=== PATIENT | female | born 1970 | race Caucasian/White ===

== ENCOUNTER 2017-06-20 10:33 | Emergency (ER) | payer MEDICARE, OTHER ==
[~2017-06-20] VITALS: Ht 172.7 cm; Wt 139.7 kg
--- NOTE | ~2017-06-20 | CT4 ---
[facility] A Service of [facility] RADIOLOGY TEXT RESULTS PATIENT: LEVI HOLDEN LOCATION: [facility] : 70 UNIT #: [id number] AGE: [address]: Estuardo Jacobo MD SEX: F ORDER DR: [id number] [facility] [address]. [place], [place] [address] [id number] MR#: [id number] #: [id number] NAME: LEVI HOLDEN : 1970 SEX: F STUDY DATE/TIME: 06/20/2017 12:56 UNIT: MATT ROOM: STUDY DESCRIPTION: CT Abd and Pelv Wo Cont Attending Physician: Estuardo Jacobo M.D. Ordering Physician: Estuardo Jacobo M.D. Primary Care Physician: Hafsa Rowe M.D. MEDICAL IMAGING REPORT This report is preliminary unless electronic signature is present EXAM CT abdomen and pelvis without contrast. INDICATIONS Mid abdominal pain beginning this morning. PROCEDURE Unenhanced CT of the abdomen and pelvis. COMPARISON 10/25/[address] exam was performed with one or more of the following radiation dose reduction techniques: automatic exposure control, adjustment of mA and/or kV according to patient size, and iterative reconstruction. FINDINGS ABDOMEN WITHOUT CONTRAST: Included lung bases are clear. Liver enlarged measuring 25 cm. The spleen measures 18.4 cm. The adrenal glands, pancreas unremarkable. A few small stones in the gallbladder but no evidence for active inflammation. The kidneys, adrenal glands are unremarkable. Bowel loops are nondilated. The appendix is normal. PELVIS WITHOUT CONTRAST: No pelvic mass or fluid. Subcutaneous edema in the lower abdomen. Lucency in the left hemisacrum is unchanged. No aggressive appearing bone lesion. IMPRESSION 1. Hepatosplenomegaly. 2. Minimal uncomplicated cholelithiasis. 3. No definite acute findings in the abdomen or pelvis. [facility] A Service of [facility] RADIOLOGY TEXT RESULTS PATIENT: LEVI HOLDEN LOCATION: [facility] : 70 UNIT #: [id number] AGE: [address]: Estuardo Jacobo MD SEX: F ORDER DR: Dictated by... Remigio Rosario M.D. THIS IS AN ELECTRONICALLY VERIFIED REPORT Remigio Rosario M.D. at 06/24/2017 8:20 AM JONH/brain TD: 06/20/2017 15:31 JOB #: [id number] MEDICAL IMAGING REPORT Page 1 of 1 COPY
[~2017-06-20 10:33] MED LIST: ALBUTEROL1.25 MG/3 IH; ALBUTEROL17 GM; ALBUTEROL17 GM INH; ALBUTEROL2.5 MG/0.5 IH; ALPRAZOLAM0.5 MG PO; ARANESP; ATARAX PO; AUGMENTIN PO; BAYER CHEWABLE81 MG PO; BENADRYL; BENAZEPRIL PO; BENICAR HCT 40-1 TA1 PO; BENICAR PO; BUMEX1 MG PO; BUMEX2 MG PO; CALCIUM ACETAT667 MG PO; CARVEDILOL25 MG PO; CATAPRES0.1 MG PO; CATAPRES0.3 MG PO; CLEOCIN PO; CLONAZEPAM0.25 MG/TA PO; CLONIDINE HCL0.3 MG PO; CORDARONE200 M1 PO; CYCLOBENZAPRINE5 MG PO; DARVOCET-N 1001 TAB PO; DIFLUCAN PO; DYAZIDE 37.5/251 CAP; FEROSUL325 ( 651 PO; FLEXERIL PO; FLEXERIL10 M1 PO; FLUOXETINE HCL20 M1 PO; FUROSEMIDE40 MG PO; GABAPENTIN300 M2 PO; GABAPENTIN600 MG PO; HUMALOG100 U/ML; HUMALOG100 U/ML SUBQ; HUMULIN R100 U/ML; HUMULIN R100 U/ML SUBQ; HUMULIN R500 U/ML SUBQ; HYDRALAZINE HC100 MG PO; HYDRALAZINE HCL25 MG PO; HYDRALAZINE HCL50 MG PO; HYDROCODON-ACE1 EAC1 PO; HYDROCODON-ACE1 EAC7 PO; IBUPROFEN PO; IBUPROFEN800 MG PO; ISOSORBIDE DINI40 M1 PO; K-DUR20 ME1 DOB; K-DUR20 ME1 PO; KCL PO; KEFLEX PO; LANTUS100 U/ML; LANTUS100 U/ML SUBQ; LASIX20 MG PO; LASIX80 MG PO; LEVEMIR FL100 UNIT/1; LEVEMIR FL100 UNIT/1 SQ; LEVEMIR100 UNITS/ SUBQ; LEVOTHROID50 MCG PO; LEVOTHYROXINE100 MC1 PO; LIPITOR20 MG PO; LISINOPRIL20 MG PO; LOPRESSOR PO; LOPRESSOR100 MG PO; LORTAB 5/500 TA1 TA2 PO; LORTAB 7.51 TAB PO; LOTREL 10/20 MG1 CAP; LOVENOX40 MG/0.4 INJ; MEDROL PO; METOLAZONE5 MG PO; METOPROLOL TAR25 MG DOB; MINOXIDIL PO; NEURONTIN PO; NEURONTIN300 MG PO; NITROGLYGERIN0.4 MG SL; NORVASC10 MG PO; NOVOLIN R100 UNITS/; NOVOLOG100 U/ML; NOVOLOG100 U/ML SUBQ; OMEPRAZOLE20 M2 PO; OXYGEN; PACERONE PO; PAIN RELIEF650 MG PO; PERCOCET5/325 PO; PHENERGAN PO; PHENERGAN25 M1 PO; PHENERGAN25 MG PO; PRILOSEC PO; PRILOSEC20 MG PO; PROVENTIL0.83 MG/ML IH; PYRIDIUM PO; RANEXA500 MG PO; SENNA LAXATIVE8.6 M1 PO; SERTRALINE HCL50 M1 PO; SPIRONOLACTONE50 MG PO; SULAR PO; SYMBICORT INH; SYMBICORT80 INH; SYNTHROID PO; SYNTHROID0.05 MG DOB; TESSALON PERLE100 M1 PO; TRICOR PO; VICODIN 5/500 T1 TAB PO; ZANTAC; ZANTAC PO; ZAROXOLYN5 MG PO; ZOFRAN PO; ZYLOPRIM100 MG DOB
[2017-06-20 11:55] LABS: BASOPHIL% 0.6 % (0-2.5); EOSINOPHIL# 0.2 X10e3 (0-0.7); EOSINOPHIL% 3.1 % (0.0-7.0); HEMATOCRIT 29.8 % (35.0-45.0); HEMOGLOBIN 9.5 gm/dL (12.0-16.0); LYMPHOCYTE# 0.7 X10e3 (1.0-3.5); LYMPHOCYTE% 11.6 % (17.0-45.0); MEAN CELL VOLUME 95.4 FL (83-96); MEAN CORPUSCULAR HEMOGLOBIN 30.5 PG (28-34); MEAN PLATELET VOLUME 7.4 FL (6.5-11.5); MONOCYTE# 0.5 X10e3 (0-1.0); MONOCYTE% 8.4 % (3.0-12.0); NEUTROPHIL# 4.8 X10e3 (1.5-7.1); NEUTROPHIL% 76.3 % (40-75); PLATELET COUNT 80 X10e3 (140-420); RED BLOOD COUNT 3.13 X10e (3.90-5.30); RED CELL DISTRIBUTION WIDTH 17.3 % (11.0-15.5); WHITE BLOOD COUNT 6.3 X10e3 (4.0-10.5)
[2017-06-20 12:16] LABS: DIFF IND YES
[2017-06-20 12:18] LABS: ANISOCYTOSIS SL; PLATELET ESTIMATE DECREASED (NORMAL)
[2017-06-20 12:25] LABS: ALBUMIN SERUM 3.5 g/dL (3.5-5.0); BILIRUBIN, DIRECT 0.1 mg/dL (0.0-0.2); BILIRUBIN,INDIRECT 0.2 mg/dL (0.0-0.9); BILIRUBIN,TOTAL 0.3 mg/dL (0.2-2.0); BUN/CREATININE RATIO 9.41; CALCIUM SERUM 8.2 mg/dL (8.4-10.2); CREATININE SERUM 5.1 mg/dL (0.6-1.4); GLOM FILT RATE Estimated 9.4 mL/min (>60); POTASSIUM 4.4 mmol/L (3.5-5.1); PROTEIN TOTAL SERUM 6.9 g/dL (6.0-8.3)
== END 2017-06-20 15:35 | disposition home or self-care (01) ==
LOC: CED 10:33
PROVIDERS: Emergency Medicine
DX: R10.9 Unspecified abdominal pain (principal); I13.2 Hypertensive heart and chronic kidney disease with heart failure and with stage 5 chronic kidney disease, or end stage renal disease; E11.22 Type 2 diabetes mellitus with diabetic chronic kidney disease; E11.65 Type 2 diabetes mellitus with hyperglycemia; N18.6 End stage renal disease; I50.9 Heart failure, unspecified; K21.9 Gastro-esophageal reflux disease without esophagitis; J44.9 Chronic obstructive pulmonary disease, unspecified; I25.2 Old myocardial infarction; G47.30 Sleep apnea, unspecified
CPT/HCPCS: 36415; 74176; 80048; 80076; 82150; 82947; 83690; 85025; 96374; 96375; 99284; J2270; J2405; J2765

== ENCOUNTER 2017-06-24 17:47 | Inpatient (IN) | payer MEDICARE, OTHER ==
[~2017-06-24] VITALS: Ht 172.7 cm; Wt 161.0 kg
--- NOTE | ~2017-06-24 | DS ---
Unit #: [id number] #: [id number] Patient: LEVI HOLDEN [id number] [address] [address] [id number] I MR#: [id number] NAME: LEVI HOLDEN ROOM: 341 Age: 46 Sex: F Admission Date: 06/24/2017 : 1970 Discharge Date: 07/01/2017 Attending Physician: Evy Dutta M.D. Primary Care Physician: Hafsa Rowe M.D. DISCHARGE SUMMARY FINAL DIAGNOSES 1. Abdominal pain. 2. Cholelithiasis but HIDA scan is negative. 3. Severe anemia which is chronic. 4. Status post esophagogastroduodenoscopy which shows gastritis and esophagitis. 5. Status post colonoscope which shows poor prep but normal whatever can be seen. 6. End stage renal disease, on hemodialysis. 7. Obstructive sleep apnea. 8. Morbid obesity. 9. Hypertension. 10. Diabetes mellitus. 11. Chronic pain. 12. Hypothyroidism. 13. Coronary artery disease. DISCHARGE MEDICATIONS 1. Coreg 25 mg b.i.d. 2. Amlodipine 10 mg daily. 3. Bumex 2 mg twice a day. 4. Clonidine 0.3 mg twice a day. 5. Hydralazine 100 mg t.i.d. 6. Levemir 35 units subcu b.i.d. 7. Zyloprim 100 mg twice a day. 8. Aspirin 81 mg daily. 9. Hydrocodone on a p.r.n. basis. 10. Plavix 75 mg daily. 11. Protonix 40 mg daily. 12. Calcium acetate 667 t.i.d. 13. Baclofen 20 mg at bedtime p.r.n. 14. Levothyroxine 100 mcg daily. 15. Isosorbide 30 mg daily. 16. Mini neb treatment with albuterol and ipratropium q.i.d. p.r.n. 17. Amiodarone 100 mg daily. 18. Lactulose 15 mL daily p.r.n. 19. Gabapentin 400 mg t.i.d. 20. Fluoxetine 20 mg twice a day. 21. Atorvastatin 80 mg daily. 22. Clonazepam 0.25 mg b.i.d. p.r.n. for anxiety. LAB WORKUP ON DISCHARGE Glucose is 120. Unit #: [id number] #: [id number] Patient: LEVI HOLDEN BMP shows sodium 129, potassium 4.1, chloride 92, BUN 52, creatinine 5.0, calcium 7.9. CBC shows WBC 5.5, hemoglobin 9.1, hematocrit 27.7, and platelet count of 74. Hemoccult in stool was negative. Urine culture - colony count 40,000 mixed growth. Please note - patient received IV Rocephin during hospitalization for possible UTI. SIGNIFICANT IMAGING STUDIES DONE DURING HOSPITALIZATION 1. CT scan of the abdomen and pelvis which shows hepatosplenomegaly. Minimal uncomplicated cholelithiasis. No definite acute finding in the abdomen or pelvis. 2. Chest x-ray shows persistent cardiomegaly, possible atelectasis in the right lung base. 3. Ultrasound of the abdomen shows cholelithiasis. 4. HIDA scan - normal study with ejection fraction of 62%. HOSPITAL COURSE Ms. Saenz is a 46-year-old, morbidly obese female, who was admitted to the hospital on June 25, 2017, with shortness of breath and abdominal pain and nausea and vomiting. Patient was admitted to telemetry unit. LSA was consulted. HIDA scan was ordered. IV antibiotic was started for UTI and Dr. Hogan was consulted for end stage renal disease. Patient also had severe anemia, most likely multifactorial. Patient continued to complain of abdominal pain. HIDA scan was negative. The patient had EGD and colonoscope done eventually and the results are as above. The patient is being discharged home in stable condition. Plan of care was discussed with patient at length. EXAMINATION AT DISCHARGE Blood pressure is 153/88, respiratory rate 18, pulse is 62, temperature 97.4, oxygen saturation is 92%. HEAD is normocephalic. CHEST has fair air entry, decreased at the bases. CVS is regular rhythm. DISCHARGE INSTRUCTION 1. The patient is being discharged home in stable condition. 2. Follow up with primary care provider in one week. 3. Protonix 40 mg daily, prescription has been written. 4. Continue hemodialysis per renal. Dictated by... Evy Dutta M.D. Kimberly TD: 07/02/2017 10:45 JOB #: [id number] Unit #: [id number] #: [id number] Patient: LEVI HOLDEN DISCHARGE SUMMARY Page 1 of 1 X Evy Dutta MD X DISCHARGE SUMMARY
--- NOTE | ~2017-06-24 | EKG ---
PATIENT: LEVI HOLDEN UNIT #: [id number] Ventricular Rate: 61 BPM Atrial Rate: 61 BPM P-R Interval: 218 ms QRS Duration: 108 ms Q-T Interval: 502 ms QTC Calculation(Bezet): 505 ms P [place]: 34 degrees Calculated R [place]: 17 degrees Calculated T [place]: 48 degrees Diagnosis Line: Sinus rhythm with sinus arrhythmia with 1st degree Diagnosis Line: A-V block Diagnosis Line: Low voltage QRS Diagnosis Line: Prolonged QT Diagnosis Line: Abnormal ECG Diagnosis Line: When compared with ECG of 26-JUN-2017 19:59, Diagnosis Line: (unconfirmed) Diagnosis Line: Premature atrial complexes are no longer Present Diagnosis Line: Confirmed by GELY JOSHI MD ([id number]) on 06/27/2017 Diagnosis Line: 7:24:20 PM INTERPRETING MD: ADI ROMERO
--- NOTE | ~2017-06-24 | CR72 ---
[facility] A Service of [facility] RADIOLOGY TEXT RESULTS PATIENT: LEVI HOLDEN LOCATION: [facility] 341- : 70 UNIT #: [id number] AGE: [address]: Evy Dutta MD SEX: F ORDER DR: [id number] [facility] [address]. [place], [place] [address] [id number] I MR#: [id number] Acc #: [id number] NAME: LEVI HOLDEN : 1970 SEX: F STUDY DATE/TIME: 06/24/2017 18:27 UNIT: A U ROOM: 341 STUDY DESCRIPTION: CR Chest Single View Portable Attending Physician: Evy Dutta M.D. Ordering Physician: Arias Roa D.O. Primary Care Physician: Hafsa Rowe M.D. MEDICAL IMAGING REPORT This report is preliminary unless electronic signature is present EXAM Frontal chest 06/24/2017. INDICATIONS 46-year-old female with shortness of air today. TECHNIQUE Frontal chest. COMPARISON Compared with 02/21/2017. FINDINGS Large-bore central line from left sided approach is unchanged. The heart is enlarged but stable. Lung volumes are low. There is bronchovascular crowding. There is worsening atelectasis/scar or less likely developing infiltrate in the peripheral midlung zone on the left. No pneumothorax. IMPRESSION 1. Persistent cardiomegaly. Probable atelectasis in the right lung base/scarring in the right lung base. Additional worsening atelectasis or scarring or less likely developing infiltrate in the peripheral midlung zone on the left. Dictated by... Jeffrey Gallo M.D. THIS IS AN ELECTRONICALLY VERIFIED REPORT Jeffrey Gallo M.D. at 06/25/2017 2:19 PM Noah TD: 06/25/2017 09:43 JOB #: [id number] [facility] A Service of [facility] RADIOLOGY TEXT RESULTS PATIENT: LEVI HOLDEN LOCATION: [facility] 341-01 : 70 UNIT #: [id number] AGE: [address]: Evy Dutta MD SEX: F ORDER DR: MEDICAL IMAGING REPORT Page 1 of 1 COPY
--- NOTE | ~2017-06-24 | HP ---
Unit #: [id number] #: [id number] Patient: LEVI HOLDEN [id number] [address] [address] [id number] I MR#: [id number] NAME: LEVI HOLDEN ROOM: 341 Age: 46 Sex: F Admission Date: 06/24/2017 : 1970 Attending Physician: Evy Dutta M.D. Primary Care Physician: Hafsa Rowe M.D. HISTORY AND PHYSICAL CHIEF COMPLAINT Abdominal pain. HISTORY OF PRESENT ILLNESS The patient is a 46-year-old morbidly obese female with multiple medical problems, who presented to the hospital with abdominal discomfort and nausea. The patient does not complain of vomiting. Her p.o. intake has decreased. The patient also complains of some shortness of breath. The patient was admitted to the hospital for possible colitis. The patient did not complain of constipation or diarrhea. PAST MEDICAL HISTORY 1. Chronic obstructive pulmonary disease. 2. Morbid obesity. 3. Obstructive sleep apnea. 4. Seizure disorder. 5. Hepatitis B. 6. Hypertension. 7. Diabetes mellitus. 8. (1) disease. 9. Endstage renal disease on hemodialysis. 10. Gastroesophageal reflux disease. PAST SURGICAL HISTORY 1. History of hernia repair. 2. History of tonsillectomy. 3. History of right ankle surgery. 4. Incision and drainage of the abscess. 5. Shunt placement. SOCIAL HISTORY The patient is a former smoker. No alcohol abuse or drug abuse. FAMILY HISTORY Noncontributory. ALLERGIES The patient is allergic to multiple medications, including sulfa drugs, Cipro, vancomycin, Levaquin, heparin and codeine. HOME MEDICATIONS 1. Zyloprim 100 mg b.i.d. 2. Amlodipine 10 mg daily. 3. Aspirin 81 mg daily. Unit #: [id number] #: [id number] Patient: LEVI HOLDEN 4. Atorvastatin 80 mg daily. 5. Bumex 2 mg b.i.d. 6. Coreg 25 mg b.i.d. 7. Clonazepam 0.25 mg b.i.d. 8. Clonidine 0.3 mg b.i.d. 9. Percocet 5 mg daily. 10. Cyclobenzaprine 10 mg b.i.d. 11. Gabapentin 400 mg t.i.d. 12. Humulin R 0.5 ml subcutaneous b.i.d. 13. Hydralazine 100 mg t.i.d. 14. Imdur ER 30 mg daily. 15. Levemir 15 units subcutaneous b.i.d. 16. Levothyroxine 100 mcg daily. 17. Hydrocodone 10/325 one tablet q.6 h. p.r.n. 18. Albuterol sulfate 1 inhaler q.i.d. p.r.n. 19. Amiodarone 100 mg daily. 20. Baclofen 20 mg at bedtime. 21. Calcium acetate 667 t.i.d. 22. Fluoxetine 20 mg b.i.d. 23. Lasix 80 mg b.i.d. 24. Ipratropium p.r.n. 25. Metoprolol 100 mg b.i.d. 26. Lactulose 15 ml daily. REVIEW OF SYSTEMS No history of fever, chills or rigors. No history of chest pain. No history of neck pain. She does complain of some shortness of breath. History of severe obstructive sleep apnea and uses CPAP. The rest is as per history of present illness. PHYSICAL EXAMINATION GENERAL: Morbidly obese female in no respiratory distress. VITALS: In the emergency room the patient's blood pressure was 134/68, respiratory rate 18, pulse 60, temperature 97.5, oxygen saturation 100%. HEENT: Head is normocephalic. Eye movements are normal and reacting to light. NECK: Supple. No adenopathy. Trachea midline. HEART: S1 and S2 positive. Decreased at the bases. Distant sounds. ABDOMEN: Obese. Bowel sounds are positive. Mild tenderness is present. More in the right upper quadrant. EXTREMITIES: Left (2) is present. Lower extremities some swelling is present. NEUROLOGIC: Awake, alert and oriented times three. No focal neurological deficits. DIAGNOSTIC STUDIES IMAGING: Chest x-ray single view was done, which shows persistent cardiomegaly and right lower lobe atelectasis. LABORATORY: Done in the emergency room, shows white blood cell count 7.4, hemoglobin 8.7, hematocrit 27.2, platelets 63. Troponin 0.06. BMP shows sodium 132, potassium 5.6, BUN 57, creatinine 6.1, CK total 213. Lactic acid is 0.9. Urinalysis shows 3+ leukocyte esterase, 1+ urine bacteria. ASSESSMENT The patient is being admitted to telemetry unit with the diagnoses of 1. Abdominal pain. 2. Cholelithiasis. Rule out cholecystitis. Unit #: [id number] #: [id number] Patient: LEVI HOLDEN 3. Nausea. 4. Urinary tract infection. 5. Endstage renal disease on hemodialysis. 6. Anemia. 7. Chronic obstructive pulmonary disease. 8. Diabetes mellitus type 2. 9. Obstructive sleep apnea. 10. Hypertension. 11. Morbid obesity. PLAN Admit to the telemetry unit. HIDA scan has been ordered. Labs will be repeated tomorrow morning. LSA has been consulted. Dr. Hogan has been consulted. Home medications have been reviewed and adjusted. DVT prophylaxis has been started. Plan of care has been discussed with the patient at length. Please refer to progress note for further orders. Dictated by Darin Ott TD: 07/01/2017 12:23 JOB #: [id number] HISTORY AND PHYSICAL Page 1 of 1 X Evy Dutta MD X HISTORY AND PHYSICAL
--- NOTE | ~2017-06-24 | EKG ---
PATIENT: LEVI HOLDEN UNIT #: [id number] Ventricular Rate: 72 BPM Atrial Rate: 100 BPM QRS Duration: 98 ms Q-T Interval: 480 ms QTC Calculation(Bezet): 525 ms P [place]: 27 degrees Calculated R [place]: 63 degrees Calculated T [place]: 32 degrees Diagnosis Line: Sinus rhythm with 2nd degree A-V block (Mobitz I) Diagnosis Line: Low voltage QRS Diagnosis Line: Prolonged QT Diagnosis Line: Abnormal ECG Diagnosis Line: When compared with ECG of 28-OCT-2016 19:04, Diagnosis Line: Sinus rhythm is now with 2nd degree A-V block Diagnosis Line: (Mobitz I) Diagnosis Line: T wave inversion no longer evident in Lateral Diagnosis Line: leads Diagnosis Line: Confirmed by GELY JOSHI MD ([id number]) on 06/26/2017 Diagnosis Line: 12:01:13 AM INTERPRETING MD: ADI ROMERO
--- NOTE | ~2017-06-24 | CO ---
Unit #: [id number] #: [id number] Patient: LEVI HOLDEN [id number] [facility] [address] [place], [place] [address] [id number] I MR#: [id number] NAME: LEVI HOLDEN ROOM: 341 Age: 46 Sex: F Admission Date: 06/24/2017 : 1970 Attending Physician: Evy Dutta M.D. Primary Care Physician: Hafsa Rowe M.D. Consultation Date: 06/26/2017 CONSULTATION REPORT REVISED REPORT REASON FOR CONSULTATION 1. Right upper quadrant pain. 2. Cholelithiasis. 3. Anal pain. Thank you very much for asking us to see Ms. Lara. HISTORY OF PRESENT ILLNESS She is a 46-year-old white female, who has a history of morbid obesity, multiple medical problems including COPD, hypothyroidism, and asthma as well as renal insufficiency, requiring hemodialysis. The patient presented with a 2 to 3 day history of nausea and vomiting and right upper quadrant pain. She was evaluated in the emergency room at [facility] with CT scan of the abdomen and pelvis. This revealed the patient had cholelithiasis and hepatosplenomegaly, but no other acute findings. An ultrasound of the gallbladder and abdomen confirmed cholelithiasis, but no evidence of acute cholecystitis. The patient had deep pressure pain in the right upper quadrant. It radiates to the back. It was associated with nausea and vomiting. The patient states she has recent reflux and heartburn. The patient also states she has had intermittent bright red blood per rectum on the paper in stool and some intermittent anal pain. She does not have a lot of pain when the bowel movements through the anal canal. She presents at this time for evaluation and treatment. ALLERGIES Sulfa, codeine, Cipro, vancomycin, levofloxacin. MEDICATIONS Please see med rec sheet. PAST SURGICAL HISTORY Umbilical hernia repair. She is unsure if mesh was placed, tonsillectomy, right ankle hardware placed. PAST MEDICAL HISTORY Coronary artery disease; congestive heart failure; hypertension; pulmonary problems; sleep apnea; asthma; hypothyroidism; diabetes; GERD; renal insufficiency, requiring hemodialysis. SOCIAL HISTORY No tobacco or alcohol use. Unit #: [id number] #: [id number] Patient: LEVI HOLDEN REVIEW OF SYSTEMS Negative except for above. FAMILY HISTORY Noncontributory. PHYSICAL EXAMINATION GENERAL: Well-developed, morbidly obese white female, in no apparent distress. Awake, alert, and oriented x3. VITAL SIGNS: Temperature is 97.5, pulse 64, respirations 20, blood pressure is 127/70. NECK: Supple. No thyromegaly or adenopathy. BACK: No CVA or spinous tenderness. ABDOMEN: Flat, soft. Tender in the right upper quadrant, but no rebound, peritoneal signs, or masses. EXTREMITIES: No calf tenderness. No erythema. ANAL: Examination of the patient's anal area reveals no evidence of fistula or abscess. On digital examination, there was no severe pain in the anal canal and no masses palpable. Good sphincter tone was present. DIAGNOSTIC STUDIES LABORATORY RESULTS: Reveal the patient to have a CMP that shows a glucose of 184, BUN 40, creatinine 4.9, and normal liver function studies. White count is 5.5 with a hemoglobin of 7.7, MCV of 95.7, and platelet count of 52,000. Urinalysis shows 3+ leukocyte esterase, negative nitrites. IMPRESSION A 46-year-old white female with morbid obesity with right upper quadrant pain, nausea, vomiting, and gallstones. We agreed with a HIDA scan today to determine if she has acute cholecystitis. If the gallbladder is non-visualized, she would need laparoscopic cholecystectomy. If the gallbladder is visualized, we feel it would be best for upper and lower endoscopy performed first to rule out any source of her anemia as well as the source of her intermittent rectal bleeding prior to laparoscopic cholecystectomy. If no significant pathology is found and then she is cleared medically, then she would possibly proceed with laparoscopic cholecystectomy. All this has been fully explained the patient in detail. She understands completely and requests we proceed with the current treatment plan. Dictated by... Darin Rizzo/shelby TD: 06/26/2017 11:57 JOB #: [id number] CC: Carmine Hogan M.D. [facility] Hafsa Rwoe M.D. Unit #: [id number] #: [id number] Patient: LEVI HOLDEN CONSULTATION REPORT Page 1 of 1 X Alfonzo Thurman MD REPORT
--- NOTE | ~2017-06-24 | NM21 ---
[facility] A Service of [facility] RADIOLOGY TEXT RESULTS PATIENT: LEVI HOLDEN LOCATION: [facility] : 70 UNIT #: [id number] AGE: [address]: Evy Dutta MD SEX: F ORDER DR: [id number] [id number] [place], [place] [address] [id number] I MR#: [id number] #: [id number] NAME: LEVI HOLDEN : 1970 SEX: F STUDY DATE/TIME: 06/26/2017 11:05 UNIT: [address] ROOM: 341 STUDY DESCRIPTION: NM Hepatobiliary W GB Attending Physician: Evy Dutta M.D. Ordering Physician: Evy Dutta M.D. Primary Care Physician: Hafsa Rowe M.D. MEDICAL IMAGING REPORT This report is preliminary unless electronic signature is present EXAM Hepatobiliary study with gallbladder stimulation HISTORY Right sided abdominal pain for 6 months which is getting worse. COMPARISON Ultrasound from 06/25/2017. FINDINGS Patient was given 5.29 mCi of Tc 99m Choletec. There is a normal distribution at the liver. The gallbladder is visualized promptly. At 60 minutes patient was given 3.4 mcg of Kinevac and 30 minute ejection fraction was calculated at 62%. Small bowel was visualized after administration of kinevac. IMPRESSION Normal study with an ejection fraction of 62%. Dictated by... Gino Montes M.D. THIS IS AN ELECTRONICALLY VERIFIED REPORT Gino Montes M.D. at 06/28/2017 6:07 AM CHARLES/dax TD: 06/26/2017 20:04 JOB #: [id number] [facility] A Service [facility] RADIOLOGY TEXT RESULTS PATIENT: LEVI HOLDEN LOCATION: [facility] : 70 UNIT #: [id number] AGE: [address]: Evy Dutta MD SEX: F ORDER DR: MEDICAL IMAGING REPORT Page 1 of 1 COPY
--- NOTE | ~2017-06-24 | EKG ---
PATIENT: LEVI HOLDEN UNIT #: [id number] Ventricular Rate: 65 BPM Atrial Rate: 65 BPM P-R Interval: 214 ms QRS Duration: 104 ms Q-T Interval: 468 ms QTC Calculation(Bezet): 486 ms P [place]: 29 degrees Calculated R [place]: 24 degrees Calculated T [place]: 65 degrees Diagnosis Line: Sinus rhythm with 1st degree A-V block with Diagnosis Line: Premature atrial complexes Diagnosis Line: Prolonged QT Diagnosis Line: Abnormal ECG Diagnosis Line: When compared with ECG of 25-JUN-2017 06:31, Diagnosis Line: Premature atrial complexes are now Present Diagnosis Line: Sinus rhythm is no longer with 2nd degree A-V Diagnosis Line: block (Mobitz I) Diagnosis Line: Confirmed by GELY JOSHI MD ([id number]) on 06/27/2017 Diagnosis Line: 7:14:00 PM INTERPRETING MD: ADI ROMERO
--- NOTE | ~2017-06-24 | BMI ---
[facility] Nutrition Therapy DATE: 06/25/17 Patient: LEVI HOLDEN Physician: MAUREEN Address: [address] [place] [address] Room/Bed: [address] [place] [address], Zip: [place] [address] Admit Date: 06/24/17 Date of : [birth year] Height: 5 8 Weight: 341 154.8 HIGH BMI NOTE: DX: 46 y/o female admitted with abdominal pain, UTI ANTHROPOMETRICS: Ht: 68", Wt: 154.8 kg, BMI: 51 (stage III obese) DIET: NPO INTERVENTION: Restricted diet, meds/fluids per MD RECOMMENDATIONS: Once medically feasible advance to consistent carb/healthy heart diet due to PMH, to promote a gradual weight loss towards a healthy BMI range. Respectfully, Jesusita Clinton RD, LD [facility] cc: client file
--- NOTE | ~2017-06-24 | OR ---
Unit #: [id number] #: [id number] Patient: LEVI HOLDEN [id number] [address] [address] [id number] I MR#: [id number] NAME: LEVI HOLDEN ROOM: [facility] Date of Procedure: 07/01/2017 Admission Date: 06/24/2017 Surgeon: Alfonzo Thurman M.D. : 1970 Attending Physician: Evy Dutta M.D. Primary Care Physician: Hafsa Rowe M.D. OPERATIVE REPORT PREOPERATIVE DIAGNOSES 1. Anemia. 2. Bright red blood in stools. POSTOPERATIVE DIAGNOSES 1. Anemia. 2. Bright red blood in stools. PROCEDURES PERFORMED 1. Esophagogastroduodenoscopy. 2. Biopsy of antrum for Helicobacter pylori testing. 3. Colonoscopy to cecum. ANESTHESIA Monitored anesthesia care. FINDINGS The patient was found to have on upper endoscopy, moderate gastritis and distal esophagitis. The patient was found on colonoscopy to have an extremely poor prep and however, we were able to pass the scope to the level of the cecum. No gross abnormalities were seen. SPECIMENS Sent to pathology. COMPLICATIONS None apparent. CONDITION The patient tolerated the procedure well. INDICATIONS FOR PROCEDURE The patient is a 46-year-old female, who has a history of severe renal disease, requiring dialysis. She has been recently found anemia. She states she has intermittent bright red blood on the toilet paper. She presents at this time for evaluation by upper as well as lower endoscopy. DESCRIPTION OF PROCEDURE After obtaining informed consent, the patient was brought to the endoscopy suite and after adequate monitored anesthesia care, had the endoscope placed through the mouth into the upper esophagus under direct vision. It was advanced to the second portion of the duodenum without difficulty with Unit #: [id number] #: [id number] Patient: LEVI HOLDEN the lumen always in view. The duodenum was within normal limits as was the duodenal bulb. The pylorus opened normally. There was some moderate distal gastritis and on retroflexing back to the GE junction, no hiatal hernia was seen, but there was some moderate gastritis proximally. A biopsy was obtained from the antrum for Helicobacter pylori testing. No other abnormalities were found in the proximal third, middle third, or incisura. On pulling back above the GE junction, there was no stenosis, stricture, or neoplasm seen, but there was some distal esophagitis present. The remaining portion of the esophagus was within normal limits. Laryngeal structures were grossly normal as viewed from above. At this point in time, the colonoscope was placed through the anus and slowly advanced very carefully with the lumen always in view. The patient had extremely poor prep with some solid stool and thick greenish liquid present throughout. We were able to pass the colonoscope to the level of the cecum without difficulty with the lumen always in view. We were able to wash out a fair amount of the cecum, but throughout the colon, there were very thick greenish liquid and solid material and it was very difficult to visualize. We did not see any gross abnormality or inflammation in the cecum, ascending colon, hepatic flexure, transverse colon, splenic flexure, descending colon, sigmoid colon, or rectum. The abnormality however could easily have been missed due to the poor prep. The scope was retroflexed in the rectum to the anorectal junction. There was no abnormality seen other than some moderate internal hemorrhoids. The scope was removed without difficulty. The patient tolerated the procedure well and went from the endoscopy suite to the recovery area in stable condition. RECOMMENDATIONS Resume preop orders, medications, and diet. Dictated by... Darin Rizzo/shelby TD: 07/01/2017 12:17 JOB #: [id number] CC: [facility] Carmine Hogan M.D. OPERATIVE REPORT Page 1 of 1 X Alfonzo Thurman MD X PROCEDURE OPERATIVE NOTE
--- NOTE | ~2017-06-24 | CO ---
Unit #: [id number] #: [id number] Patient: LETTY DE LEON [id number] [address] [address] [id number] I MR#: [id number] NAME: LETTY DE LEON ROOM: 341 Age: 46 Sex: F Admission Date: 06/24/2017 : 1970 Attending Physician: Evy Dutta M.D. Primary Care Physician: Hafsa Rowe M.D. Consultation Date: 06/25/2017 CONSULTATION REPORT REASON FOR CONSULT End-stage renal disease. Thank you very much for having me see this patient in consultation. HISTORY OF PRESENT ILLNESS Ms. Letty De Leon is a 46-year-old female with a history of end-stage renal disease, on hemodialysis every Saturday, , and Saturday, with last dialysis on Saturday, who presented to the hospital apparently with abdominal discomfort and some mild nausea. No vomiting. Decreased p.o. intake. Although it was not on her ER sheet, she now states she is having increasing shortness of breath. She states they usually remove about five to six liters from her with each dialysis. She denies any fevers or chills. She denies any urinary symptoms. She denies any chest pain. PAST MEDICAL HISTORY 1. End-stage renal disease as mentioned above using a tunneled catheter. 2. Gastroesophageal reflux disease. 3. Asthma. 4. Chronic obstructive pulmonary disease. 5. Cor pulmonale. 6. Obstructive sleep apnea. 7. Seizure disorder. 8. Depression. 9. Anemia. 10. Hepatitis C. 11. Hypertension. 12. Diabetes mellitus. 13. Atherosclerotic coronary artery disease. ALLERGIES Sulfa drugs, codeine, Cipro, vancomycin, Levaquin, and heparin. FAMILY HISTORY Noncontributory. SOCIAL HISTORY Previous smoker, none now. No alcohol. HOME MEDICATIONS 1. Allopurinol 100 mg twice daily. 2. Amlodipine 10 mg daily. 3. Aspirin 81 mg daily. Unit #: [id number] #: [id number] Patient: LETTY DE LEON 4. Atorvastatin 80 mg daily. 5. Bumex 2 mg twice daily. 6. Carvedilol 25 mg twice daily. 7. Clonazepam 0.25 mg twice daily. 8. Clonidine 0.3 mg twice daily. 9. Plavix 75 mg daily. 10. Cyclobenzaprine 10 mg twice daily. 11. Gabapentin 400 mg t.i.d. 12. Insulin. 13. Hydralazine 100 mg t.i.d. 14. Imdur 30 mg daily. 15. Levothyroxine 100 mcg daily. 16. Hydrocodone p.r.n. for pain. 17. Inhalers. 18. Amiodarone 100 mg daily. 19. Baclofen 20 mg at night. 20. Calcium acetate 667 mg with meals. 21. Metoprolol questionable 100 mg twice daily. 22. Lactulose p.r.n. REVIEW OF SYSTEMS As mentioned in the HPI, she denies any cough or hemoptysis, no neck pain or neck stiffness, no chest pain, chest heaviness, or palpitations, no worsening swelling, and no recent skin rashes. PHYSICAL EXAMINATION GENERAL: She is alert, although she is on a face mask currently. VITAL SIGNS: T-max is 98.4, pulse 70-103, and blood pressure 105 to 176 over 40s to 113. Her ins and outs are not recorded. HEENT: Normocephalic and atraumatic. Pupils are equal, round, and reactive to light. Extraocular muscles are intact. Hearing appears to be normal. Mouth is clear. No erythema, no exudates. NECK: Supple. No adenopathy. CARDIAC: She is without a rub. No S3 or S4. LUNGS: Decreased breath sounds at her bases, distant. ABDOMEN: Obese. Bowel sounds positive. Mild tenderness but not severe. No rebound or guarding. EXTREMITIES: She has a tunneled catheter in her left upper chest. She has some very mild lower extremity swelling. Her legs are large. NEUROLOGIC: Appears to be intact motor and sensory grossly. GENITOURINARY: Deferred. DIAGNOSTIC STUDIES LABORATORY: Glucose is 322, BUN 52, creatinine 5.6, sodium 134, potassium 5, bicarb 23, calcium 8, and albumin is 3.6. Liver function tests were normal. Lipase was 33. Lactic acid was 0.9. test was negative. Hemoglobin is 8.7 this morning, white 7400, and platelets of 63,000. Urinalysis showed 3+ protein, 500 glucose, 10-25 RBCs, too numerous to count WBCs, and 1+ bacteria. Urine culture is currently pending. IMAGING: Chest x-ray showed some cardiomegaly and no acute failure at this point. On the 3rd of this month, I guess as an outpatient or in the ER, she had a CT scan of her abdomen and pelvis that showed hepatosplenomegaly and cholelithiasis minimal but no other acute findings. ASSESSMENT AND PLAN 1. End-stage renal disease. Will plan on dialyzing her as soon as Unit #: [id number] #: [id number] Patient: LETTY DE LEON possible today and try to remove five to six liters since she is short of breath now and will follow volume status and electrolytes with you. 2. Anemia. Will give Epogen with dialysis, follow trends, and check CBC in the morning. 3. Hypertension. I am not sure if she is really on both the carvedilol and Lopressor. Will review that and certainly if she is on both, then I guess will continue, but certainly we will have to watch heart rate and blood pressure and defer any further treatments to primary. 4. Probable urinary tract infection. Await urine culture. Patient was started on Rocephin. 5. Abdominal pain per primary. 6. Diabetes mellitus. Increase glucose. 1. Dictated by... Carmine Hogan M.D. HANS/eryn TD: 06/25/2017 19:55 JOB #: [id number] CONSULTATION REPORT Page 1 of 1 X Suly Hogan MD X CONSULTATION REPORT
--- NOTE | ~2017-06-24 | US6 ---
[facility] A Service of [facility] & [facility] RADIOLOGY TEXT RESULTS PATIENT: LEVI HOLDEN LOCATION: [facility] 341-01 : [birth year] UNIT #: [id number] AGE: [address]: Evy Dutta MD SEX: F ORDER DR: [id number] [facility] [address] [facility]. [place], [place] [address] [id number] MR#: [id number] Acc #: [id number] NAME: LEVI HOLDEN : 1970 SEX: F STUDY DATE/TIME: 06/25/2017 8:02 UNIT: [address] ROOM: [facility] STUDY DESCRIPTION: US Abdominal Limited Attending Physician: Evy Dutta M.D. Ordering Physician: Evy Dutta M.D. Primary Care Physician: Hafsa Rowe M.D. MEDICAL IMAGING REPORT This report is preliminary unless electronic signature is present EXAM Right upper quadrant ultrasound 06/25/2017 HISTORY Right upper quadrant abdominal pain for 2 days. Hypertension, hyperlipidemia and diabetes. FINDINGS Liver is homogeneous in echotexture and demonstrates no cystic or solid mass lesions. The intra and extrahepatic bile ducts are not dilated. The gallbladder contains small shadowing gallstones. There is no evidence of gallbladder wall thickening or pericholecystic fluid. The common duct measures 4 mm. The pancreas and right kidney are normal. IMPRESSION Cholelithiasis. Dictated by... Agustin Sanchez M.D. THIS IS AN ELECTRONICALLY VERIFIED REPORT Agustin Sanchez M.D. at 06/26/2017 2:36 PM LYLA/dax TD: 06/25/2017 14:18 JOB #: [id number] MEDICAL IMAGING REPORT Page 1 of 1 COPY
[2017-06-24 18:28] LABS: URINE SOURCE CLEAN CATCH
[2017-06-24 18:34] LABS: URINE APPEARANCE TURBID; URINE BILIRUBIN NEG (NEG); URINE BLOOD 1+ (NEG); URINE COLOR YELLOW; URINE GLUCOSE 500 MG/DL (NEG); URINE KETONE NEG (NEG); URINE LEUKOCYTE ESTERASE 3+ (NEG); URINE NITRATE NEG (NEG); URINE PROTEIN 3+ (NEG); URINE SPECIFIC GRAVITY 1.019 (1.003-1.035); URINE UROBILINOGEN 0.2 MG/DL (NEG)
[2017-06-24 18:36] LABS: CULTURE INDICATED? YES; URINE BACTERIA AUWI 1+ (NEGATIVE); URINE SQUAMOUS EPITHELIAL CELL FEW /[HPF]; UWBCS1 AUWI INNUM (0-5)
[2017-06-24 18:36] LABS: BASOPHIL% 0.5 % (0-2.5); EOSINOPHIL# 0.2 X10e3 (0-0.7); EOSINOPHIL% 3.8 % (0.0-7.0); HEMATOCRIT 28.6 % (35.0-45.0); HEMOGLOBIN 9.3 gm/dL (12.0-16.0); LYMPHOCYTE# 0.7 X10e3 (1.0-3.5); MEAN CELL VOLUME 95.6 FL (83-96); MEAN CORPUSCULAR HEMOGLOBIN 31.2 PG (28-34); MEAN CORPUSCULAR HGB CONC 32.6 g/dL (30-36); MEAN PLATELET VOLUME 7.5 FL (6.5-11.5); MONOCYTE# 0.3 X10e3 (0-1.0); MONOCYTE% 5.1 % (3.0-12.0); NEUTROPHIL# 4.9 X10e3 (1.5-7.1); NEUTROPHIL% 78.6 % (40-75); PLATELET COUNT 72 X10e3 (140-420); RED BLOOD COUNT 2.99 X10e (3.90-5.30); RED CELL DISTRIBUTION WIDTH 17.3 % (11.0-15.5); WHITE BLOOD COUNT 6.2 X10e3 (4.0-10.5)
[2017-06-24 18:54] LABS: DIFF IND YES
[2017-06-24 18:55] LABS: ALBUMIN SERUM 3.6 g/dL (3.5-5.0); ALKALINE PHOSPHATASE 75 U/L (32-92); ALT (SGPT) 17 U/L (10-40); AST (SGOT) 17 U/L (10-42); BILIRUBIN,TOTAL 0.2 mg/dL (0.2-2.0); BLOOD UREA NITROGEN 52 mg/dL (9-23); BUN/CREATININE RATIO 9.28; CARBON DIOXIDE 23 mmol/L (22-31); CHLORIDE 101 mmol/L (100-111); CREATININE SERUM 5.6 mg/dL (0.6-1.4); GLOM FILT RATE Estimated 8.4 mL/min (>60); GLUCOSE FASTING 322 mg/dL (70-110); LIPASE 33 U/L (22-51); SODIUM 134 mmol/L (135-145)
[2017-06-24 18:57] LABS: BILIRUBIN, DIRECT <0.1 mg/dL (0.0-0.2); BILIRUBIN,INDIRECT 0.1 mg/dL (0.0-0.9)
[2017-06-24 18:58] LABS: POC - CKMB 15.6 ng/mL (0.0-7.9); POC - TROPONIN <0.05 ng/mL (<=0.05)
[2017-06-24 19:07] LABS: PLATELET ESTIMATE DECREASED (NORMAL)
[2017-06-24 19:09] LABS: ANISOCYTOSIS SL
[2017-06-24] MEDS ORDERED: ZYLOPRIM100 MG PO (21:15)
[2017-06-24] MEDS ORDERED: AMLODIPINE BESY10 MG PO (21:15)
[2017-06-24] MEDS ORDERED: ASPIRIN81 MG PO (21:16)
[2017-06-24] MEDS ORDERED: ATORVASTATIN CA80 MG PO (21:16)
[2017-06-24] MEDS ORDERED: CARVEDILOL25 MG PO (21:17)
[2017-06-24] MEDS ORDERED: BUMEX2 MG PO (21:17)
[2017-06-24] MEDS ORDERED: CLONIDINE HCL0.3 MG PO (21:18)
[2017-06-24] MEDS ORDERED: CLOPIDOGREL75 MG PO (21:18)
[2017-06-24] MEDS ORDERED: CLONAZEPAM0.25 MG SL (21:18)
[2017-06-24] MEDS ORDERED: GABAPENTIN400 MG PO (21:19)
[2017-06-24] MEDS ORDERED: CYCLOBENZAPRINE5 MG PO (21:19)
[2017-06-24] MEDS ORDERED: HYDRALAZINE HC100 MG PO (21:20)
[2017-06-24] MEDS ORDERED: HUMULIN R500 UNIT/2 SUBQ (21:20)
[2017-06-24] MEDS ORDERED: LORTAB 7.5-3251 EACH PO (21:21)
[2017-06-24] MEDS ORDERED: IMDUR-ER30 M1 PO (21:21)
[2017-06-24] MEDS ORDERED: LEVEMIR FL100 UNIT/1 SUBQ (21:21)
[2017-06-24] MEDS ORDERED: LEVOTHYROXINE100 MCG PO (21:22)
[2017-06-24] MEDS ORDERED: HYDROCODON-ACE1 EAC5 PO (21:28)
[2017-06-24] MEDS ORDERED: AMIODARONE HCL100 MG PO (21:29)
[2017-06-24] MEDS ORDERED: ALBUTEROL2.5 MG/3 M INH (21:29)
[2017-06-24] MEDS ORDERED: FLUOXETINE HCL20 M1 PO (21:30)
[2017-06-24] MEDS ORDERED: CALCIUM ACETAT667 M1 PO (21:30)
[2017-06-24] MEDS ORDERED: BACLOFEN20 M1 PO (21:30)
[2017-06-24] MEDS ORDERED: LASIX80 MG PO (21:31)
[2017-06-24] MEDS ORDERED: IPRATR-ALBUTEROL3 ML INH (21:31)
[2017-06-24] MEDS ORDERED: LACTULOSE10 GM/15 M PO (21:32)
[2017-06-24] MEDS ORDERED: METOPROLOL TAR100 MG PO (21:32)
[2017-06-24 23:34] LABS: POC - CKMB 15.6 ng/mL (0.0-7.9); POC - TROPONIN <0.05 ng/mL (<=0.05)
[2017-06-25 09:44] LABS: HEMATOCRIT 27.2 % (35.0-45.0); HEMOGLOBIN 8.7 gm/dL (12.0-16.0); MEAN CELL VOLUME 96.3 FL (83-96); MEAN CORPUSCULAR HEMOGLOBIN 30.8 PG (28-34); MEAN PLATELET VOLUME 7.5 FL (6.5-11.5); RED BLOOD COUNT 2.83 X10e (3.90-5.30); RED CELL DISTRIBUTION WIDTH 17.3 % (11.0-15.5); WHITE BLOOD COUNT 7.4 X10e3 (4.0-10.5)
[2017-06-25 10:54] LABS: BUN/CREATININE RATIO 9.34; CALCIUM SERUM 7.7 mg/dL (8.4-10.2); CREATININE SERUM 6.1 mg/dL (0.6-1.4); GLOM FILT RATE Estimated 7.6 mL/min (>60)
[2017-06-25 11:38] LABS: POTASSIUM 5.6 mmol/L (3.5-5.1)
[2017-06-25 13:01] LABS: %MB 13.1 % (0.0-4.0)
[2017-06-26 06:39] LABS: HEMATOCRIT 23.8 % (35.0-45.0); HEMOGLOBIN 7.7 gm/dL (12.0-16.0); MEAN CELL VOLUME 95.7 FL (83-96); MEAN CORPUSCULAR HEMOGLOBIN 30.9 PG (28-34); MEAN CORPUSCULAR HGB CONC 32.3 g/dL (30-36); MEAN PLATELET VOLUME 8.1 FL (6.5-11.5); RED BLOOD COUNT 2.49 X10e (3.90-5.30); RED CELL DISTRIBUTION WIDTH 17.4 % (11.0-15.5); WHITE BLOOD COUNT 5.5 X10e3 (4.0-10.5)
[2017-06-26 07:14] LABS: ALBUMIN SERUM 3.1 g/dL (3.5-5.0); BILIRUBIN,TOTAL 0.3 mg/dL (0.2-2.0); BUN/CREATININE RATIO 8.16; CALCIUM SERUM 7.6 mg/dL (8.4-10.2); CREATININE SERUM 4.9 mg/dL (0.6-1.4); GLOM FILT RATE Estimated 9.9 mL/min (>60); POTASSIUM 4.3 mmol/L (3.5-5.1); PROTEIN TOTAL SERUM 5.8 g/dL (6.0-8.3)
[2017-06-26 21:34] LABS: %MB 12.5 % (0.0-4.0)
[2017-06-27 05:38] LABS: HEMATOCRIT 25.1 % (35.0-45.0); HEMOGLOBIN 7.9 gm/dL (12.0-16.0); MEAN CORPUSCULAR HEMOGLOBIN 30.3 PG (28-34); MEAN CORPUSCULAR HGB CONC 31.5 g/dL (30-36); MEAN PLATELET VOLUME 7.6 FL (6.5-11.5); RED BLOOD COUNT 2.61 X10e (3.90-5.30); RED CELL DISTRIBUTION WIDTH 17.2 % (11.0-15.5); WHITE BLOOD COUNT 5.9 X10e3 (4.0-10.5)
[2017-06-27 06:34] LABS: ALBUMIN SERUM 3.3 g/dL (3.5-5.0); BILIRUBIN,TOTAL 0.4 mg/dL (0.2-2.0); BUN/CREATININE RATIO 8.79; CALCIUM SERUM 7.5 mg/dL (8.4-10.2); CREATININE SERUM 5.8 mg/dL (0.6-1.4); GLOM FILT RATE Estimated 8.1 mL/min (>60); PHOSPHOROUS 7.5 mg/dL (2.5-4.6); POTASSIUM 4.6 mmol/L (3.5-5.1); PROTEIN TOTAL SERUM 6.2 g/dL (6.0-8.3)
[2017-06-28 05:40] LABS: HEMATOCRIT 23.1 % (35.0-45.0); HEMOGLOBIN 7.7 gm/dL (12.0-16.0); MEAN CELL VOLUME 93.6 FL (83-96); MEAN CORPUSCULAR HEMOGLOBIN 31.2 PG (28-34); MEAN CORPUSCULAR HGB CONC 33.4 g/dL (30-36); MEAN PLATELET VOLUME 7.8 FL (6.5-11.5); RED BLOOD COUNT 2.47 X10e (3.90-5.30); RED CELL DISTRIBUTION WIDTH 16.7 % (11.0-15.5); WHITE BLOOD COUNT 5.4 X10e3 (4.0-10.5)
[2017-06-28 06:50] LABS: BUN/CREATININE RATIO 7.87; CALCIUM SERUM 7.4 mg/dL (8.4-10.2); CREATININE SERUM 4.7 mg/dL (0.6-1.4); GLOM FILT RATE Estimated 10.4 mL/min (>60); POTASSIUM 4.5 mmol/L (3.5-5.1)
[2017-06-29 04:59] LABS: HEMATOCRIT 22.1 % (35.0-45.0); HEMOGLOBIN 7.1 gm/dL (12.0-16.0); MEAN CELL VOLUME 94.3 FL (83-96); MEAN CORPUSCULAR HEMOGLOBIN 30.5 PG (28-34); MEAN CORPUSCULAR HGB CONC 32.3 g/dL (30-36); MEAN PLATELET VOLUME 8.3 FL (6.5-11.5); RED BLOOD COUNT 2.34 X10e (3.90-5.30); RED CELL DISTRIBUTION WIDTH 17.1 % (11.0-15.5); WHITE BLOOD COUNT 4.6 X10e3 (4.0-10.5)
[2017-06-29 06:05] LABS: BUN/CREATININE RATIO 9.45; CALCIUM SERUM 7.5 mg/dL (8.4-10.2); CREATININE SERUM 5.5 mg/dL (0.6-1.4); GLOM FILT RATE Estimated 8.6 mL/min (>60); POTASSIUM 4.4 mmol/L (3.5-5.1)
[2017-06-30 05:20] LABS: HEMATOCRIT 25.7 % (35.0-45.0); HEMOGLOBIN 8.4 gm/dL (12.0-16.0); MEAN CELL VOLUME 93.1 FL (83-96); MEAN CORPUSCULAR HEMOGLOBIN 30.4 PG (28-34); MEAN CORPUSCULAR HGB CONC 32.6 g/dL (30-36); MEAN PLATELET VOLUME 8.5 FL (6.5-11.5); RED BLOOD COUNT 2.76 X10e (3.90-5.30); RED CELL DISTRIBUTION WIDTH 17.3 % (11.0-15.5); WHITE BLOOD COUNT 5.6 X10e3 (4.0-10.5)
[2017-06-30 05:51] LABS: BUN/CREATININE RATIO 9.06; CALCIUM SERUM 7.4 mg/dL (8.4-10.2); CREATININE SERUM 4.3 mg/dL (0.6-1.4); GLOM FILT RATE Estimated 11.6 mL/min (>60); POTASSIUM 4.5 mmol/L (3.5-5.1)
[2017-07-01 05:35] LABS: BASOPHIL% 0.3 % (0-2.5); EOSINOPHIL# 0.2 X10e3 (0-0.7); EOSINOPHIL% 3.5 % (0.0-7.0); HEMATOCRIT 27.7 % (35.0-45.0); HEMOGLOBIN 9.1 gm/dL (12.0-16.0); LYMPHOCYTE# 0.7 X10e3 (1.0-3.5); LYMPHOCYTE% 12.1 % (17.0-45.0); MEAN CELL VOLUME 92.5 FL (83-96); MEAN CORPUSCULAR HEMOGLOBIN 30.5 PG (28-34); MONOCYTE# 0.5 X10e3 (0-1.0); MONOCYTE% 8.4 % (3.0-12.0); NEUTROPHIL# 4.2 X10e3 (1.5-7.1); NEUTROPHIL% 75.7 % (40-75); RED BLOOD COUNT 2.99 X10e (3.90-5.30); RED CELL DISTRIBUTION WIDTH 16.5 % (11.0-15.5); WHITE BLOOD COUNT 5.5 X10e3 (4.0-10.5)
[2017-07-01 05:36] LABS: DIFF IND NO; PLATELET COUNT 74 X10e3 (140-420)
[2017-07-01 06:05] LABS: BUN/CREATININE RATIO 10.4; CALCIUM SERUM 7.9 mg/dL (8.4-10.2); GLOM FILT RATE Estimated 9.6 mL/min (>60); POTASSIUM 4.1 mmol/L (3.5-5.1)
[2017-07-01] MEDS ORDERED: PROTONIX PO (12:28)
== END 2017-07-01 15:14 | disposition home health service (06) | DRG 391 ==
LOC: CED 17:47 → C3A PCU 22:30 → CEDOF 22:30 → CED 22:57 → CEDOF 23:35 → C3A PCU 23:35
PROVIDERS: Emergency Medicine; Internal Medicine; Internal Medicine Nephrology; Physician Assistant Medical; Surgery
PROC: 05H533Z Insertion of Infusion Device into Right Subclavian Vein, Percutaneous Approach (ICD-10-PCS; 2017-06-24)
PROC: 5A1D60Z (ICD-10-PCS; 2017-06-25)
PROC: 30233N1 Transfusion of Nonautologous Red Blood Cells into Peripheral Vein, Percutaneous Approach (ICD-10-PCS; 2017-06-29)
PROC: 0DB68ZX Excision of Stomach, Via Natural or Artificial Opening Endoscopic, Diagnostic (ICD-10-PCS; principal; 2017-07-01 10:10)
PROC: 0DJD8ZZ Inspection of Lower Intestinal Tract, Via Natural or Artificial Opening Endoscopic (ICD-10-PCS; 2017-07-01 10:10)
DX: R10.11 Right upper quadrant pain (principal); N18.6 End stage renal disease; I12.0 Hypertensive chronic kidney disease with stage 5 chronic kidney disease or end stage renal disease; D69.6 Thrombocytopenia, unspecified; E87.1 Hypo-osmolality and hyponatremia; D58.9 Hereditary hemolytic anemia, unspecified; N39.0 Urinary tract infection, site not specified; K62.5 Hemorrhage of anus and rectum; Z68.43 Body mass index [BMI] 50.0-59.9, adult; K80.20 Calculus of gallbladder without cholecystitis without obstruction; E66.01 Morbid (severe) obesity due to excess calories; D64.9 Anemia, unspecified; E11.9 Type 2 diabetes mellitus without complications; Z99.2 Dependence on renal dialysis; G47.33 Obstructive sleep apnea (adult) (pediatric); Z88.2 Allergy status to sulfonamides; Z88.1 Allergy status to other antibiotic agents; Z91.09 Other allergy status, other than to drugs and biological substances; Z79.4 Long term (current) use of insulin; K29.70 Gastritis, unspecified, without bleeding; K20.9 Esophagitis, unspecified
CPT/HCPCS: 36415; 71010; 76705; 78226; 80048; 80053; 80076; 81003; 82274; 82550; 82553; 82947; 83605; 83690; 83735; 84100; 84484; 84703; 85025; 85027; 86850; 86900; 86901; 86923; 87077; 87086; 93005; 94640; 94660; 94760; 97161; 97166; 99285; A9537; C9113; G8978-GP; G8979-GP; G8980-GP; G8987-GO; G8988-GO; G8989-GO; J0696; J1815; J2405; J2805; J2997; P9016; Q4081